=== PATIENT | male | born 1970 | race Caucasian/White ===

== ENCOUNTER 2016-09-24 08:07 | Emergency (ER) | payer OTHER ==
[2016-09-24 08:27] VITALS: BP 133/75
[2016-09-24] MEDS ORDERED: Ketorolac 60 MG/2 ML SDV IM ONE (08:48)
--- NOTE | 2016-09-24 08:51 | EDM.PDOC ---
ED HPI GENERAL MEDICAL PROBLEM - General Chief Complaint: Genitourinary Problem Stated Complaint: KIDNEY STONES Time Seen by Provider: 09/24/16 08:48 Source of Information: Reports: Patient, Family, RN Notes Reviewed History Limitations: Reports: No Limitations - History of Present Illness INITIAL COMMENTS - FREE TEXT/NARRATIVE: 45-year-old gentleman presents emergency department a complaint of right flank pain, he has a known history of nephrolithiasis multiple times he states this feels very similar to kidney stones he's had in the past pain started in the middle of his back radiating down the right flank and now goes into his right testicle he has used both ibuprofen and hydrocodone at home from prior stones he denies any fevers back Pain Score (Numeric/FACES): 5 - Related Data Allergies Allergy/AdvReac Type Severity Reaction Status Date / Time No Known Allergies Allergy Verified 09/24/16 08:22 Home Meds: Home Meds Clindamycin HCl [Cleocin HCl] 150 mg PO QID 09/24/16 [History] Hydrocodone/Acetaminophen [Hydrocodon-Acetaminophen 5-325] 1 tab PO Q4HR PRN [History] Ibuprofen 800 mg PO Q6HR PRN 09/24/16 [History] Past Medical History Genitourinary History: Reports: Other (See Below) Other Genitourinary History: chronic kidney stone - Infectious Disease History Infectious Disease History: Reports: Chicken Pox - Past Surgical History HEENT Surgical History: Reports: Other (See Below) Other HEENT Surgeries/Procedures: infected tooth Male Surgical History: Reports: Kidney Stone Extraction, Vasectomy Social & Family History - Tobacco Use Smoking Status *Q: Never Smoker - Caffeine Use Caffeine Use: Reports: Coffee, Soda - Recreational Drug Use Recreational Drug Use: No ED ROS GENERAL - Review of Systems Review Of Systems: See Below Constitutional: Denies: Fever, Chills HEENT: Reports: No Symptoms Respiratory: Reports: No Symptoms Cardiovascular: Reports: No Symptoms GI/Abdominal: Reports: No Symptoms : Reports: Flank Pain Musculoskeletal: Reports: No Symptoms Skin: Reports: No Symptoms ED EXAM, RENAL/ - Physical Exam Exam: See Below Exam Limited By: No Limitations General Appearance: Alert, WD/WN, No Apparent Distress Respiratory/Chest: No Respiratory Distress, Lungs Clear, Normal Breath Sounds, No Accessory Muscle Use Cardiovascular: Regular Rate, Rhythm, No Murmur GI/Abdominal: Soft, Tender (Lung right flank) Back Exam: No: CVA Tenderness (R), CVA Tenderness (L) Course - Vital Signs Last Recorded V/S: Last Vital Signs Temp 96.5 F 09/24/16 08:26 Pulse 59 L 09/24/16 08:26 Resp 16 09/24/16 08:26 BP 133/75 09/24/16 08:26 Pulse Ox 97 09/24/16 08:26 - Orders/Labs/Meds Orders: Active Orders 24 hr Category Date Time Status Peripheral IV Care [RC] . DIRECTED Care 09/24/16 10:03 Active Sodium Chloride 0.9% [Saline Flush] Med 09/24/16 10:03 Active 10 ml FLUSH ASDIRECTED PRN Peripheral IV Insertion Adult [OM.PC] Urgent Oth 09/24/16 10:02 Ordered Medication Orders Sodium Chloride (Saline Flush) 10 ml FLUSH ASDIRECTED PRN PRN Reason: Keep Vein Open Last Admin: 09/24/16 10:19 Dose: 10 ml Labs: Laboratory Tests 09/24/16 Range/Units 08:45 Urine Color Yellow Urine Appearance Turbid Urine pH 6.0 (4.5-8.0) Ur Specific [place] 1.020 (1.008-1.030) Urine Protein Trace (NEGATIVE) mg/dL Urine Glucose (UA) Normal (NEGATIVE) mg/dL Urine Ketones Negative (NEGATIVE) mg/dL Urine Occult Blood Large (NEGATIVE) Urine Nitrite Negative (NEGAITVE) Urine Bilirubin Negative (NEGATIVE) Urine Urobilinogen 1 (NORMAL) mg/dL Ur Leukocyte Esterase Negative (NEGATIVE) Urine RBC >100 H (0-5) Urine WBC 0-5 (0-5) Ur Epithelial Cells Rare Amorphous Sediment Not seen Urine Bacteria Not seen Urine Mucus Few Urine Other Meds: Medications Generic Name Dose Route Start Last Admin Trade Name Freq PRN Reason Stop Dose Admin Sodium Chloride 10 ml 09/24/16 10:03 09/24/16 10:19 Saline Flush FLUSH 10 ml ASDIRECTED PRN Administration Keep Vein Open Discontinued Medications Generic Name Dose Route Start Last Admin Trade Name Freq PRN Reason Stop Dose Admin Hydromorphone HCl 1 mg 09/24/16 09:19 09/24/16 09:31 Dilaudid IM 09/24/16 09:20 1 mg ONETIME ONE Administration Lactated Ringer's 1,000 mls @ 999 mls/hr 09/24/16 10:02 09/24/16 10:13 Ringers, Lactated IV 09/24/16 11:02 999 mls/hr BOLUS ONE Administration Ketorolac Tromethamine 60 mg 09/24/16 08:48 09/24/16 08:52 Toradol IM 09/24/16 08:49 60 mg ONETIME ONE Administration Morphine Sulfate 5 mg 09/24/16 10:20 09/24/16 10:17 Morphine IVPUSH 09/24/16 10:21 5 mg ONETIME ONE Administration Ondansetron HCl 4 mg 09/24/16 09:19 09/24/16 09:30 Zofran Odt PO 09/24/16 09:20 4 mg ONETIME ONE Administration Departure - Departure Time of Disposition: 11:51 Disposition: Home, Self-Care 01 Condition: Good Clinical Impression: Right flank pain - Discharge Information Forms: ED Department Discharge Additional Instructions: Use hydrocodone as needed for pain control, Please followup with your primary care provider in 3-5 days if not better, please call return to the emergency department with worsening of symptoms. - My Orders Last 24 Hours: My Active Orders 09/24/16 10:02 Peripheral IV Insertion Adult [OM.PC] Urgent 09/24/16 10:03 Peripheral IV Care [RC] . DIRECTED Sodium Chloride 0.9% [Saline Flush] 10 ml FLUSH ASDIRECTED PRN - Assessment/Plan Last 24 Hours: My Active Orders 09/24/16 10:02 Peripheral IV Insertion Adult [OM.PC] Urgent 09/24/16 10:03 Peripheral IV Care [RC] . DIRECTED Sodium Chloride 0.9% [Saline Flush] 10 ml FLUSH ASDIRECTED PRN Plan: Assessment Acuity = acute Site and laterality = right flank pain complicated patient with known history of nephrolithiasis Etiology = probable for nephrolithiasis Manifestations = pain, nausea Location of injury = home Lab values = urinalysis reveals a large amount rbc's consistent with hematuria Plan I did review lab results with him he had good relief with combination Toradol IV fluids Dilaudid and morphine, I did offer him CT scan and laboratory evaluation but he declined at this time, be discharged home with 10 hydrocodone follow-up with primary care 3-5 days if no improvement Patient was in agreement with the plan all questions were answered, they were instructed to return to the emergency department or call for worsening symptoms. This note was dictated using [employer] voice recognition software please call with any questions.
[2016-09-24] MEDS ORDERED: Ondansetron 4 MG Tab.DIS PO ONE (09:19)
[2016-09-24] MEDS ORDERED: HYDROmorphone 1 MG/ML Syringe IM ONE (09:19)
[2016-09-24] MEDS ORDERED: Lactated Ringers 1,000 ML IV ONE (10:02)
[2016-09-24] MEDS ORDERED: Morphine 5 MG/ML SDV IVPUSH ONE (10:03)
[2016-09-24] MEDS ORDERED: Sodium Chloride 0.9% 10 ML Syringe FLUSH PRN (10:03)
[2016-09-24] MEDS ORDERED: Morphine 10 MG/ML Syringe IVPUSH ONE (10:20)
== END 2016-09-24 12:19 | disposition home or self-care (01) ==
LOC: JP.ED 08:07
DX: R10.9 Unspecified abdominal pain (principal); Z79.899 Other long term (current) drug therapy
CPT/HCPCS: 81001; 96361; 96374; 99284; A9270; J1170; J1885; J2270; J7050; J7120

== ENCOUNTER 2016-09-25 00:02 | Emergency (ER) | payer OTHER ==
--- NOTE | 2016-09-25 01:02 | EDM.PDOC ---
[id number]: [facility] [place] Time Seen by Provider: 09/25/16 00:30 Source of Information: Reports: Patient, Family History Limitations: Reports: No Limitations - History of Present Illness INITIAL COMMENTS - FREE TEXT/NARRATIVE: 45-year-old male with a history of kidney stones presented to the emergency room this morning with flank and abdominal pain treated presumptively as renal colic. He did improve as the day went on but tonight the pain returned with severe intensity, the ambulance was called and he was brought back in. Nausea but no vomiting. No fever or chills. The pain is right flank wrapping around to the right groin. He received pain medication in route and is feeling better again. Onset: Unknown/Unsure Location: Reports: Back Severity: Severe Associated Symptoms: Reports: Nausea/Vomiting. Denies: Cough, Fever/Chills, Shortness of Breath Bilateral Lower Back Pain Score (Numeric/FACES): 5 - Related Data Allergies Allergy/AdvReac Type Severity Reaction Status Date / Time No Known Allergies Allergy Verified 09/24/16 08:22 Home Meds: Home Meds Clindamycin HCl [Cleocin HCl] 150 mg PO QID 09/24/16 [History] Hydrocodone/Acetaminophen [Hydrocodon-Acetaminophen 5-325] 1 tab PO Q4HR PRN [History] Ibuprofen 800 mg PO Q6HR PRN 09/24/16 [History] Past Medical History Genitourinary History: Reports: Other (See Below) Other Genitourinary History: chronic kidney stone - Infectious Disease History Infectious Disease History: Reports: Chicken Pox - Past Surgical History HEENT Surgical History: Reports: Other (See Below) Other HEENT Surgeries/Procedures: infected tooth Male Surgical History: Reports: Kidney Stone Extraction, Vasectomy Musculoskeletal Surgical History: Reports: Arthroscopic Knee Social & Family History - Tobacco Use Smoking Status *Q: Never Smoker - Caffeine Use Caffeine Use: Reports: Coffee - Recreational Drug Use Recreational Drug Use: No ED ROS GENERAL - Review of Systems Review Of Systems: See Below Constitutional: Denies: Fever, Chills HEENT: Reports: No Symptoms Respiratory: Reports: No Symptoms GI/Abdominal: Reports: Nausea. Denies: Vomiting Musculoskeletal: Reports: Back Pain Skin: Reports: No Symptoms Neurological: Reports: No Symptoms ED EXAM, GENERAL - Physical Exam Exam: See Below Exam Limited By: No Limitations General Appearance: Alert, Anxious, Moderate Distress Respiratory/Chest: No Respiratory Distress, Lungs Clear Cardiovascular: Regular Rate, Rhythm GI/Abdominal: Soft, Tender (Some discomfort to palpation, no rebound) Back Exam: No: CVA Tenderness (R), CVA Tenderness (L) Extremities: Normal Inspection Neurological: Alert Psychiatric: Anxious Skin Exam: Warm, Dry Course - Vital Signs Last Recorded V/S: Last Vital Signs Temp 98.6 F 09/25/16 01:55 Pulse 60 09/25/16 01:55 Resp 16 09/25/16 01:55 BP 137/80 09/25/16 01:55 Pulse Ox 95 09/25/16 01:55 - Orders/Labs/Meds Meds: Medications Discontinued Medications Generic Name Dose Route Start Last Admin Trade Name Corey PRN Reason Stop Dose Admin Ketorolac Tromethamine 30 mg 09/25/16 02:18 09/25/16 02:23 Toradol IVPUSH 09/25/16 02:19 30 mg ONETIME ONE Administration Tamsulosin HCl 0.4 mg 09/25/16 01:26 09/25/16 01:54 Flomax PO 09/25/16 01:27 0.4 mg ONETIME ONE Administration - Re-Assessments/Exams Free Text/Narrative Re-Assessment/Exam: 09/25/16 01:37 CT of the abdomen and pelvis without contrast confirmed a 6 mm proximal right ureteral stone. There was moderate proximal hydronephrosis. Patient's pain was well controlled. He was discharged with 20 additional doses of oral Toradol, 20 additional doses of hydrocodone and given 1 dose of Flomax. A copy of the CT scan was given to the patient for future reference, and he will seek urology help if symptoms aren't improved in 3-5 days or if his pain becomes uncontrolled. Prior to discharge, the pain was recurring so 30 mg of Toradol was given IV Departure - Departure Time of Disposition: 03:20 Disposition: Home, Self-Care 01 Condition: Good Clinical Impression: Kidney stone, Renal colic on right side Hydronephrosis Qualifiers: Hydronephrosis type: with ureteral calculous obstruction Qualified Code(s): N13.2 - Hydronephrosis with renal and ureteral calculous obstruction - Discharge Information Instructions: Kidney Stones, [id number] Referrals: PCP,None [Primary Care Provider] - Forms: ED Department Discharge Care Plan Goals: Continue medications as prescribed. Consider rechecking if pain becomes uncontrollable, or if you are still having symptoms after 4-5 days.
[2016-09-25] MEDS ORDERED: Tamsulosin 0.4 MG Cap.ER PO ONE (01:26)
[2016-09-25 01:56] VITALS: BP 137/80
[2016-09-25] MEDS ORDERED: Ketorolac 30 MG/ML SDV IVPUSH ONE (02:18)
== END 2016-09-25 02:35 | disposition home or self-care (01) ==
LOC: JP.ED 00:02
DX: N13.2 Hydronephrosis with renal and ureteral calculous obstruction (principal)
CPT/HCPCS: 74176; 96374; 99284; A9270; J1885